=== PATIENT | male | born 1950 | race Caucasian/White ===

== ENCOUNTER 2025-03-02 18:21 | Emergency (ER) | payer BC, MEDICARE ==
[~2025-03-02] VITALS: Ht 180.3 cm; Wt 97.0 kg
[2025-03-02 18:25] VITALS: TEMP 36.9; O2SAT 97
[2025-03-02] MEDS: HYDROMORPHONE HCL/PF 2MG/ML INJ IM ONE (22:04)
[2025-03-02 22:08] VITALS: BP 130/61; PULSE 70; RESP 15; O2SAT 95
== END 2025-03-02 22:10 | disposition home or self-care (01) ==
LOC: ER 18:21
DX: L97.528 Non-pressure chronic ulcer of other part of left foot with other specified severity (principal); L97.518 Non-pressure chronic ulcer of other part of right foot with other specified severity; G89.29 Other chronic pain; M79.671 Pain in right foot; M79.672 Pain in left foot; Z95.1 Presence of aortocoronary bypass graft; Z88.0 Allergy status to penicillin
CPT/HCPCS: 99283; 96372; J1171